=== PATIENT | female | born 1950 | race Caucasian/White ===

== ENCOUNTER 2016-06-19 20:36 | Emergency (ER) | payer BC ==
[2016-06-19 22:34] LABS: BASOPHILS 0 % (0.0-2.0); EOSINOPHILS 0.2 % (0-7); HEMATOCRIT 44.2 % (36.0-48.0); HEMOGLOBIN 14.3 g/dL (12-16); IMMATURE GRANULOCYTES 0.2 % (0-5); LYMPHOCYTES 16.2 % (15-50); MCH 30.6 pg (26.0-34.0); MCHC 32.4 g/dL (31.0-37.0); MCV 94.6 fL (80.0-100.0); MEAN PLATELET VOLUME 10.6 fL (7.4-10.4); MONOCYTES 12.9 % (2-11); NEUTROPHILS 70.5 % (40-80); PLATELET COUNT 119 10x3/uL (130-400); RBC 4.67 10x6/uL (4.00-5.40); RDW 12.8 % (11.5-14.5); WBC 4.9 10x3/uL (4.8-10.8)
[2016-06-19 22:53] LABS: ALBUMIN 3.6 g/dL (3.4-5.0); ALKALINE PHOSPHATASE 83 U/L (46-116); ALT (SGPT) 32 U/L (10-68); AMYLASE - SERUM 27 U/L (25-115); CALC OSMOLALITY 280 mosm/kg (275-300); CALCIUM 8.6 mg/dL (8.5-10.1); CHLORIDE - SERUM 103 mmol/L (98-107); CREATININE - SERUM 0.8 mg/dL (0.6-1.3); GLUCOSE 97 mg/dL (74-106); LIPASE 81 U/L (73-393); POTASSIUM - SERUM 3.2 mmol/L (3.5-5.1); PROTEIN - SERUM 6.8 g/dL (6.4-8.2); SODIUM 139 mmol/L (136-145); UREA NITROGEN 20 mg/dL (7-18); eGFR NON AFRICAN AMERICAN 76 mL/min (90-120)
== END 2016-06-20 00:52 | disposition home or self-care (01) ==
LOC: D.ER 20:36
PROVIDERS: Surgery
DX: G43.909 Migraine, unspecified, not intractable, without status migrainosus (principal); R11.10 Vomiting, unspecified; R19.7 Diarrhea, unspecified; K21.9 Gastro-esophageal reflux disease without esophagitis

== ENCOUNTER → 2016-11-25 12:20 | Outpatient (CLI) | payer BC | END | disposition home or self-care (01) | LOC: D.US 12:20 | DX: R60.0 Localized edema (principal) ==

== ENCOUNTER → 2016-11-26 12:40 | Outpatient (CLI) | payer BC | END | disposition home or self-care (01) | LOC: D.CT 12:40 | DX: R79.1 Abnormal coagulation profile (principal) ==

== ENCOUNTER 2018-08-11 10:59 | Emergency (ER) | payer BC ==
[~2018-08-11] VITALS: Ht 157.5 cm; Wt 106.8 kg
[2018-08-11 11:02] VITALS: Ht 157.5 cm; Wt 106.8 kg
[2018-08-11] MEDS ORDERED: VITAMIN D3400 UNI1 PO (11:06)
[2018-08-11] MEDS ORDERED: SYNTHROID88 MCG PO (11:06)
[2018-08-11] MEDS ORDERED: WELLBUTRIN XL150 M1 PO (11:06)
[2018-08-11] MEDS ORDERED: PROTONIX40 MG PO (11:06)
[2018-08-11] MEDS ORDERED: LEXAPRO10 MG PO (11:06)
[2018-08-11] MEDS ORDERED: ALBUTEROL SULF8.5 GM INH (11:09)
[2018-08-11] MEDS ORDERED: IBUPROFEN800 MG PO (12:02)
[2018-08-11 12:30] VITALS: BP 132/80
[2018-08-11 12:48] LABS: APPEARANCE HAZY (CLEAR); BACTERIA MODERATE /hpf (NONE SEEN); BILIRUBIN NEGATIVE (NEGATIVE); COLOR YELLOW (YELLOW); EPITHELIAL CELLS 0-5 /hpf (0-5); GLUCOSE NEGATIVE (NEGATIVE); KETONE NEGATIVE (NEGATIVE); NITRITE NEGATIVE (NEGATIVE); PROTEIN NEGATIVE (NEGATIVE); RED CELLS - URINE 0-5 /hpf (0-5); SPECIFIC GRAVITY 1.015 (1.005-1.020); UROBILINOGEN NORMAL (NORMAL); WHITE CELLS - URINE 0-5 /hpf (0-5)
[2018-08-11 12:49] LABS: MUCUS <1+ /lpf (NONE SEEN)
== END 2018-08-11 12:31 | disposition home or self-care (01) ==
LOC: D.ER 10:59
PROVIDERS: Family Medicine
DX: S83.91XA Sprain of unspecified site of right knee, initial encounter (principal); X58.XXXA Exposure to other specified factors, initial encounter; Y93.01 Activity, walking, marching and hiking; Y92.219 Unspecified school as the place of occurrence of the external cause; M25.461 Effusion, right knee

== ENCOUNTER 2018-09-05 10:00 | Outpatient (CLI) | payer BC ==
[2018-08-11 11:02] VITALS: BMI 43.1
[~2018-09-05 10:00] MED LIST: ALBUTEROL SULF8.5 GM INH; IBUPROFEN800 MG PO; LEXAPRO10 MG PO; PROTONIX40 MG PO; SYNTHROID88 MCG PO; VITAMIN D3400 UNI1 PO; WELLBUTRIN XL150 M1 PO
== END 2018-09-05 10:45 | disposition home or self-care (01) ==
LOC: D.MAMMO 10:00
PROVIDERS: ATTEND Family Medicine
DX: Z12.31 Encounter for screening mammogram for malignant neoplasm of breast (principal)

== ENCOUNTER 2018-09-29 08:00 | Outpatient (CLI) | payer BC ==
[2018-08-11 11:02] VITALS: BMI 43.1
== END 2018-09-29 23:59 | disposition home or self-care (01) ==
LOC: D.MAMMO 08:00
PROVIDERS: ATTEND Family Medicine
DX: Z12.31 Encounter for screening mammogram for malignant neoplasm of breast (principal)

== ENCOUNTER → 2018-11-21 11:33 | Outpatient (CLI) | payer BC ==
[2018-08-11 11:02] VITALS: BMI 43.1
== END | disposition home or self-care (01) ==
LOC: D.HCCARDIO 11:33
PROVIDERS: ATTEND Internal Medicine Cardiovascular Disease
DX: R06.09 Other forms of dyspnea (principal)

== ENCOUNTER 2019-02-05 07:50 | Day surgery (SDC) | payer BC ==
[~2019-02-05] VITALS: Ht 157.5 cm; Wt 109.1 kg
[2019-02-05 08:17] LABS: HEMATOCRIT 43.9 % (36.0-48.0); HEMOGLOBIN 14.3 g/dL (12-16); MCH 31.9 pg (26.0-34.0); MCHC 32.6 g/dL (31.0-37.0); MEAN PLATELET VOLUME 10.9 fL (7.4-10.4); RBC 4.48 10x6/uL (4.00-5.40); RDW 13.1 % (11.5-14.5); WBC 4.8 10x3/uL (4.8-10.8)
[2019-02-05 08:46] VITALS: BP 128/74; Ht 157.5 cm; Wt 109.1 kg
--- NOTE | 2019-02-05 10:57 | NUR ---
1035 IV DC'D. CATHETER TIP INTACT. NO BLEEDING AT SITE. BANDAID APPLIED.
--- NOTE | 2019-02-07 19:09 | OP ---
PATIENT NAME: CHERELLE MAHAN MEDICAL RECORD: [id number] :50 LOCATION:D[facility] ADMISSION DATE: SURGEON: BLAYNE KNUTSON DO DATE OF OPERATION: 02/05/2019 PROCEDURE: Colonoscopy with polypectomy and biopsies. INDICATIONS FOR PROCEDURE: Screening for colorectal cancer. SCOPE: [employer] video pediatric colonoscope. MEDICATIONS: Propofol 400 mg IV per anesthesia. WITHDRAWAL TIME: 10 minutes. ESTIMATED BLOOD LOSS: Minimal. COMPLICATIONS: None. FINDINGS: Informed consent was given. The patient was made comfortable with the above medication. After reaching an adequate level of sedation by slow IV push, the patient was placed on her left side. A digital rectal examination was performed and was normal. The endoscope was then advanced under direct visualization through the rectum to the cecum, confirmed by the presence of the appendiceal orifice and ileocecal valve. The endoscope was slowly withdrawn and the mucosa was carefully examined. The prep quality was good. There were 2 polyps visualized on today's examination. They were located in the sigmoid colon. They both measured approximately 3-4 mm in diameter. They were both removed using a hot snare. In the sigmoid colon and distal descending colon, there were multiple diverticula with 1 site appearing to be infected and consistent with diverticulitis. Surrounding this diverticulum, there were changes consistent with some colitis that is also likely related to the diverticulitis itself. Two cold forceps biopsies were taken from this mucosa to rule out other etiologies for the finding. Retroflexion was performed in the rectum with visualization of grade I internal hemorrhoids without bleeding. The endoscope was withdrawn from the patient. The patient tolerated the procedure well and there were no complications. IMPRESSION: 1. Two sigmoid polyps removed using a hot snare. 2. Mild diverticulosis of the descending and sigmoid colon with evidence of 1 site positive for diverticulitis. 3. Grade I internal hemorrhoids without bleeding. PLAN AND RECOMMENDATIONS: 1. Discharge home when recovery parameters are met. 2. Follow up biopsy specimen results. 3. High fiber diet. 4. Continue current medications. 5. We will provide antibiotic therapy for 7 days regarding the diverticulitis. 6. Recall colonoscopy in 5 years based on the polyps removed on today's examination. 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
== END 2019-02-05 10:55 | disposition home or self-care (01) ==
LOC: D.OPS 07:50
PROVIDERS: Anesthesiology; ATTEND Internal Medicine Gastroenterology
DX: Z12.11 Encounter for screening for malignant neoplasm of colon (principal); K63.5 Polyp of colon; K57.32 Diverticulitis of large intestine without perforation or abscess without bleeding; K64.0 First degree hemorrhoids; J45.909 Unspecified asthma, uncomplicated; M19.90 Unspecified osteoarthritis, unspecified site

== ENCOUNTER → 2019-03-16 14:06 | Outpatient (CLI) | payer BC ==
[2019-02-05 08:46] VITALS: BMI 44.0
== END | disposition home or self-care (01) ==
LOC: D.RT 01-18 09:00
PROVIDERS: ATTEND Internal Medicine Pulmonary Disease
DX: R06.00 Dyspnea, unspecified (principal)

== ENCOUNTER 2019-10-28 08:47 | Emergency (ER) | payer BC ==
[~2019-10-28] VITALS: Ht 157.5 cm; Wt 118.2 kg
[2019-10-28 08:51] VITALS: Ht 157.5 cm; Wt 118.2 kg
[2019-10-28 09:18] LABS: BASOPHILS 0.5 % (0-2); EOSINOPHILS 2.5 % (0-7); HEMATOCRIT 41.6 % (36.0-48.0); HEMOGLOBIN 13.7 g/dL (12-16); IMMATURE GRANULOCYTES 0.2 % (0-5); LYMPHOCYTES 28.9 % (15-50); MCH 31.3 pg (26.0-34.0); MCHC 32.9 g/dL (31.0-37.0); MEAN PLATELET VOLUME 10.1 fL (7.4-10.4); MONOCYTES 6.5 % (2-11); NEUTROPHILS 61.4 % (40-80); PLATELET COUNT 155 10x3/uL (130-400); RBC 4.38 10x6/uL (4.00-5.40); RDW 12.5 % (11.5-14.5); WBC 5.5 10x3/uL (4.8-10.8)
[2019-10-28 09:28] LABS: CALCIUM 8.6 mg/dL (8.5-10.1); CARBON DIOXIDE 27.7 mmol/L (21.0-32.0); POTASSIUM - SERUM 3.7 mmol/L (3.5-5.1)
[2019-10-28 09:33] LABS: APTT 27.8 SECONDS (22.8-39.4); BILIRUBIN - TOTAL 0.46 mg/dL (0.2-1.3); INR 0.93 (0.85-1.17); PROTEIN - SERUM 7.2 g/dL (6.4-8.2); PROTIME 12.5 SECONDS (11.6-15.0)
[2019-10-28 09:34] LABS: D-DIMER-QUANTITATIVE 0.37 ug/mLFEU (0.20-0.54)
[2019-10-28] MEDS ORDERED: VALTREX1000 MG PO (10:06)
[2019-10-28] MEDS ORDERED: PREDNISONE50 MG PO (10:06)
[2019-10-28] MEDS ORDERED: CYCLOBENZAPRINE10 MG PO (10:21)
[2019-10-28] MEDS ORDERED: ACETAMINOPHEN500 M1 PO (10:21)
[2019-10-28 11:20] VITALS: BP 149/83
== END 2019-10-28 11:20 | disposition home or self-care (01) ==
LOC: D.ER 08:47
PROVIDERS: Family Medicine
DX: B02.9 Zoster without complications (principal); R60.0 Localized edema; E07.9 Disorder of thyroid, unspecified; J45.909 Unspecified asthma, uncomplicated; K21.9 Gastro-esophageal reflux disease without esophagitis; M79.604 Pain in right leg

== ENCOUNTER → 2020-09-09 15:23 | Outpatient (CLI) | payer MEDICARE, BC ==
[2019-10-28 08:51] VITALS: BMI 47.7
[~2020-09-09 15:23] MED LIST changes: +ACETAMINOPHEN500 M1 PO; +CYCLOBENZAPRINE10 MG PO; +PREDNISONE50 MG PO; +VALTREX1000 MG PO
== END | disposition home or self-care (01) ==
LOC: D.RT 15:23
PROVIDERS: ATTEND Internal Medicine Pulmonary Disease
DX: R06.00 Dyspnea, unspecified (principal)